=== PATIENT | male | born 1975 | race Two or more races ===

== ENCOUNTER 2025-06-30 11:32 | Emergency (ER) | payer BC, SELFPAY ==
[2025-06-30 11:39] VITALS: BP 145/83; PULSE 59; RESP 18; TEMP 36.6; O2SAT 99; BMI 21.7
--- NOTE | 2025-06-30 11:40 | EKG_ITS ---
[facility] Test Date: 2025-06-30 Pat Name: MUSHTAQ ALLEN Department: Room: - Gender: Male [employer] Carrier: : 1975 Requested By: Tim Damico (ERENDIRA) Order Number: [id number] Reading MD: Tim Damico (METAL TREATER) Measurements Intervals [place] Rate: 60 P: 64 MD: 134 QRS: 54 QRSD: 90 T: 64 QT: 416 QTc: 418 Interpretive Statements SINUS RHYTHM NONSPECIFIC T-WAVE ABNORMALITY No previous ECG available for comparison /store/S0/[id number]/ecg/[id number].pdf
--- NOTE | 2025-06-30 11:40 | PD.EDRME ---
Rapid Medical Screening Exam RME Arrival date/time: 06/30/25 11:32 49-year-old male presents emergency department with complaints of upper abdominal pain since this morning Chief Complaint: Abdominal Pain Vital signs: Vital Signs Temperature 97.8 F 06/30/25 11:39 Pulse Rate 59 L 06/30/25 11:39 Respiratory Rate 18 06/30/25 11:39 Blood Pressure 145/83 H 06/30/25 11:39 Pulse Oximetry (%) 99 06/30/25 11:39 Oxygen Delivery Method Room Air 06/30/25 11:39
[2025-06-30] MEDS: FAMOTIDINE 20 MG TABLET PO ×2 (11:53→14:12)
[2025-06-30] MEDS: ONDANSETRON ODT 4 MG TABRAP PO (11:53)
[2025-06-30 12:31] LABS: Collection Type, Urine Clean Catch; Squamous Epithelial Cell,Urine 0 /hpf (0-5)
[2025-06-30 12:37] LABS: Basophils # (Auto) 0.0 Thou/mm3 (0.0-0.2); Basophils % (Auto) 0 % (0-2.5); Eosinophils # (Auto) 0.1 Thou/mm3 (0.0-0.5); Eosinophils % (Auto) 1 % (0-10); Hematocrit 43.9 % (41.0-53.0); Hemoglobin 15.1 g/dL (13.5-16.0); Immature Granulocytes Auto 0.03 Thou/mm3 (0.00-0.00); Lymphocytes # (Auto) 2.6 Thou/mm3 (1.0-4.8); Lymphocytes % (Auto) 28 % (10-50); Mean Corpuscular HGB Conc 34.4 g/dl (31.0-37.0); Mean Corpuscular Hemoglobin 31.2 pg (25.0-35.0); Mean Corpuscular Volume 91 fL (80-100); Monocytes # (Auto) 0.6 Thou/mm3 (0.0-0.8); Monocytes % (Auto) 6 % (0-12); Neutrophils # (Auto) 6.1 Thou/mm3 (1.8-7.7); Neutrophils % (Auto) 64 % (37-80); Nucleated Red Blood Cell # 0.00 Thou/mm3 (0.00-0.00); Nucleated Red Blood Cell % 0 /100 WBC (0); Platelet Count 174 Thou/mm3 (140-440); RDW Standard Deviation 41.8 fL (35.1-43.9); Red Blood Count 4.84 Miln/mm3 (4.50-5.90); White Blood Count 9.4 Thou/mm3 (3.8-10.6)
[2025-06-30 12:39] VITALS: BP 164/93; PULSE 56; RESP 16; TEMP 36.5; O2SAT 99
[2025-06-30 12:54] LABS: Alanine Aminotransferase 18 U/L (10-49); Albumin, Serum 4.4 gm/dL (3.5-5.0); Albumin/Globulin Ratio 1.5 (1.2-2.2); Alkaline Phosphatase 77 U/L (46-116); Anion Gap 9 (7-16); Aspartate Amino Transferase 24 U/L (0-34); BUN/Creatinine Ratio 21 Ratio (12-20); Bilirubin,Total 0.7 mg/dL (0.3-1.2); Blood Urea Nitrogen 21 mg/dL (9-23); Calcium 9.5 mg/dL (8.3-10.6); Calcium (Corrected) 9.5 mg/dL (8.5-10.1); Carbon Dioxide 25.8 mMol/L (20.0-31.0); Chloride 105 mMol/L (98-107); Creatinine (Component) 1.0 mg/dL (0.6-1.3); Estimated Creatinine Clearance 75.7 mL/min (>60); Globulin 2.9 gm/dL (2.3-3.5); Glucose 110 mg/dL (74-106); Lipase 41 U/L (12-53); Osmolality,Calculated 283 (275-295); Potassium 4.4 mMol/L (3.4-5.1); Sodium 140 mMol/L (136-145); Total Protein 7.3 gm/dL (5.7-8.2); Troponin I < 0.002 ng/mL (0.0-0.045); eGFR > 60 See Note
[2025-06-30 12:54] LABS: Bilirubin,Urine Negative (Negative); Blood,Urine Negative (Negative); Clarity,Urine Clear (Clear/Hazy); Color,Urine Lt-Yellow (Lt Yel-Yel); Culture Indicated,Urine Not Indicated; Glucose, Urine Negative (Negative); Ketones,Urine Trace (Negative); Leukocyte Esterase,Urine Negative (Negative); Nitrite,Urine Negative (Negative); PH,Urine 6.5 (5.0-7.0); Protein,Urine Negative (Neg - Trace); RBC,Urine 1 /hpf (0-3); Specific Gravity,Urine 1.023 (1.001-1.035); Urobilinogen,Urine Negative mg/dL (0.0-1.0); WBC,Urine < 1 /hpf (0-5)
--- NOTE | 2025-06-30 13:26 | EDNOTE_ITS ---
ED Abdominal Pain RME/HPI General Chief Complaint: Abdominal Pain Stated complaint: ABD PAIN SINCE 08 THIS MORNING Time seen by provider: 06/30/25 12:10 Arrival date/time: 06/30/25 11:32 RME / HPI RME / HPI narrative: 06/30/25 11:32 49-year-old male presents emergency department with complaints of upper abdominal pain since this morning DR. MORRIS MAIN ED EVALUATION 49 year old male with no stated medical history presents to the ED with complaint of epigastric abdominal pain beginning at 08:30 AM today. Described as burning in sensation that has remained constant since onset, rating as moderate. Accompanied by nausea. Reports he had experienced similar pain in the past that resolved with Tylenol. However, took Tylenol today with no improvement. States at work he ate tamales and had a sandwich and a bowl of cereal after getting off work today at 02:00 AM. Denies any known aggravating factors. States he has not had anything to eat or drink since onset. Denies fevers, chills, chest pain, cough, sore throat, vomiting, diarrhea, or urinary symptoms. Patient admits to drinking alcohol and last consumed 2 weeks ago. Denies use of drugs or smoking tobacco. Related Data Previous Rx's ?Medication ?Instructions ?Recorded albuterol sulfate 90 mcg/actuation 1 inh inhalation QI D PRN shortness 06/15/20 aerosol inhaler of breath or wheezing #8.5 g jose imlnepupf-TP-vkkplfbroaxqg 25 30 ml PO Q6HR #245.5 mL 06/15/20 mg-10 mg-650 mg/30 mL oral liquid (Theraflu ExpressMax Cold-Cough Night) azithromycin 500 mg tablet See Rx Instructions PO .COM PLEX #3 06/16/20 tabs ibuprofen 600 mg tablet 600 mg PO Q8H PRN pain #20 t abs 09/20/23 aluminum-mag hydroxide-simethicone 10 ml PO TID PRN in digestion #250 06/30/25 400 mg-400 mg-40 mg/5 mL oral susp mL (Mylanta Maximum Strength) famotidine 40 mg tablet 40 mg PO BID #14 tabs ondansetron 4 mg disintegrating 4 mg PO Q8H PRN nausea and 06/30/25 tablet vomiting #6 tabs Allergies Allergy/AdvReac Type Severity Reaction Status Date / Time No Known Allergies Allergy Verified 06/30/25 11:34 Review of Systems Review of Systems Systems Reviewed: All systems reviewed, normal except as documented Past Medical History Family History FAMILY HISTORY: Positive Family Cardiac Disorders Social History SMOKING STATUS: Never smoker SUBSTANCE USE: does not use ED Exam Narrative Physical exam: GENERAL APPEARANCE: alert and oriented x 4, well-developed, well-nourished, appears uncomfortable, grimacing in pain HEENT: Normocephalic, atraumatic; pupils equal, round, reactive to light; EOMI; mucous membranes pink, moist; oropharynx clear NECK: Supple LUNGS: CTABL; no wheezes, no rales, no rhonchi HEART: Regular rate, regular rhythm; normal S1, S2; no murmurs ABDOMEN: non distended; normal BS; soft, epigastric and periumbilical tenderness to palpation, no guarding, no rebound; no masses, no organomegaly, no hernia BACK: no CVA tenderness EXTREMITIES: atraumatic; no edema NEUROLOGIC: awake; alert and oriented x4; cranial nerves II-XII grossly intact; no focal sensory or motor deficits PSYCHIATRIC: appropriate mood and affect SKIN: warm, dry, normal color; no rashes Course Course Course Narrative: 1520: Patient reports feeling much improved from onset though still has some pain. Labs were reviewed including CBC, CMP, lipase which were generally unremarkable. Magnesium mildly low. Given location of pain to epigastrium described as burning along with exam findings and unremarkable labs overall, likely gastritis/GI origin. I advised the patient eat a bland diet for the next few days and will send home with recommendations for as needed medications for home. Quality Measures none Orders Category Date Time Status EKG (ED ONLY) *Do not use* NOW Care 06/30/25 11:40 Completed EKG (ED Only) Stat Exams 06/30/25 11:40 Draft CBC Stat Lab 06/30/25 11:57 Completed Comprehensive Metabolic Panel Stat Lab 06/30/25 11:57 Completed Lipase Stat Lab 06/30/25 11:57 Completed Magnesium Stat Lab 06/30/25 14:20 Completed Troponin I Stat Lab 06/30/25 11:57 Completed UA, C/S IF [Urinalysis, C/S if Indicated] Stat Lab 06/30/25 12:02 Completed Famotidine [Pepcid] Med 06/30/25 11:41 Discontinued 20 mg PO X1 ONE Famotidine [Pepcid] Med 06/30/25 13:28 Discontinued 20 mg PO X1 ONE Ketorolac Inj [Toradol Inj] Med 06/30/25 15:25 Discontinued 30 mg IVP X1 ONE Magnesium Sulfate 1 gm Ivpb [Magnesium Sulfate Ivpb] Med 06/30/25 15:25 Discontinued 1 gm in 100 ml IV X1 Ondansetron Odt [Zofran Odt] Med 06/30/25 11:41 Discontinued 4 mg PO X1 ONE Pantoprazole [Protonix] Med 06/30/25 13:27 Discontinued 40 mg PO X1 ONE Sodium Chloride 0.9% 500 ml [Ns] 500 ml Med 06/30/25 13:29 Discontinued IV 1,000 mls/hr mg Hyd/Al Hyd/Ingris Susp [Maalox Susp] Med 06/30/25 13:27 Discontinued 30 ml PO X1 ONE Vital Signs Vital signs: Vital Signs Temperature 97.8 F 06/30/25 11:39 Pulse Rate 59 L 06/30/25 11:39 Respiratory Rate 18 06/30/25 11:39 Blood Pressure 145/83 H 06/30/25 11:39 Pulse Oximetry (%) 99 06/30/25 11:39 Oxygen Delivery Method Room Air 06/30/25 11:39 Pulse ox is 99% on room air which is adequate. Abdominal Pain MDM MDM Narrative MDM Narrative:: Amirah Santana am scribing for and in the presence of Dr. Morris. Patient data External records reviewed:: [facility] previous records (I reviewed ED visit on 09/08/2024 ) Clinical information provided by:: patient Social determinants that could affect healthcare access:: none Patient has the following chronic illnesses:: None reported How is presenting disease/condition affected by chronic disease/condition?: no chronic disease Evaluation data The following diagnostics were reviewed and interpreted by me:: lab results and EKG tracing(s) (06/30/2025 @ 11:43 AM. Sinus rhythm, rate 60, no STEMI. ) Lab and/or radiology exams considered but not ordered:: None Interpretation Summary: Labs are all within normal limits Medications / Prescriptions Medications or Prescriptions considered but not ordered:: None Medication administrations:: Medication Administration History Discontinued Medications Al Hydrox/Mg Hydrox/Simethicone (Mg Hyd/Al Hyd/Ingris (Maalox Reg) Susp 30 Ml Udc) 30 ml PO X1 ONE Stop: 06/30/25 13:28 Last Admin: 06/30/25 14:12 Dose: 30 ml Documented By: WESLEY Famotidine (Famotidine 20 Mg Tablet) 20 mg PO X1 ONE Stop: 06/30/25 11:42 Last Admin: 06/30/25 11:53 Dose: 20 mg Documented By: Famotidine (Famotidine 20 Mg Tablet) 20 mg PO X1 ONE Stop: 06/30/25 13:29 Last Admin: 06/30/25 14:12 Dose: 20 mg Documented By: WESLEY Sodium Chloride (Ns) 500 mls @ 1,000 mls/hr IV .Q30M ONE Stop: 06/30/25 13:58 Last Infusion: 06/30/25 15:00 Dose: Infused Documented By: Admin: 06/30/25 14:12 Dose: 1,000 mls/hr Documented By: WESLEY Magnesium Sulfate/Dextrose (Magnesium Sulfate Ivpb) 1 gm in 100 mls @ 100 mls/hr IV X1 ONE Stop: 06/30/25 16:24 Last Admin: 06/30/25 16:00 Dose: 100 mls/hr Documented By: WESLEY Ketorolac Tromethamine (Ketorolac Inj 30 Mg/Ml Vial) 30 mg IVP X1 ONE Stop: 06/30/25 15:26 Last Admin: 06/30/25 16:00 Dose: 30 mg Documented By: WESLEY Ondansetron HCl (Ondansetron Odt 4 Mg Tabrap) 4 mg PO X1 ONE; Protocol Stop: 06/30/25 11:42 Last Admin: 06/30/25 11:53 Dose: 4 mg Documented By: Pantoprazole Sodium (Pantoprazole 40 Mg Tablet) 40 mg PO X1 ONE Stop: 06/30/25 13:28 Last Admin: 06/30/25 14:12 Dose: 40 mg Documented By: WESLEY See above Consultations Consultation(s) initiated? (list below): No Diagnosis Differential diagnosis abdominal pain: abdominal pain, gastroenteritis, pancreatitis and other (gastritis ) Most likely diagnosis given after review of the tests above:: Gastritis Admission Indicated Admission indicated?: not indicated Admission Request Was there a request for admission?: No Disposition Plan Disposition Plan: Discharge Discharge Attestation Discharge Attestation: The patient and all family members were given an opportunity to ask questions and understood the discharge instructions. Discharge instructions specifically effects, indications for sooner follow up or return to the emergency department, and the expected course of current diagnosis. Patient condition: Stable Discharge Plan Plan Patient Disposition: HOME (Self Care) Patient condition on transfer: Stable Prescriptions/Referrals Prescriptions/Med Rec: New famotidine 40 mg tablet 40 mg PO BID Qty: 14 0RF ondansetron 4 mg tablet,disintegrating 4 mg PO Q8H PRN (Reason: nausea and vomiting) Qty: 6 0RF alum-mag hydroxide-simeth [Mylanta Maximum Strength] 400-400-40 mg/5 mL suspension 10 ml PO TID PRN (Reason: indigestion) Qty: 250 0RF No Action albuterol sulfate 90 mcg/actuation HFA aerosol inhaler 1 inh IH QID PRN (Reason: shortness of breath or wheezing) Qty: 8.5 0RF Theraflu ExpressMax Cold Night 25-10-650 mg/30 mL liquid 30 ml PO Q6HR Qty: 245.5 0RF azithromycin 500 mg tablet See Rx Instructions .ROUTE .COMPLEX Qty: 3 0RF Rx Instructions: take 500 mg today (day 1), then 250 mg for 4 days (days 2-5) ibuprofen 600 mg tablet 600 mg PO Q8H PRN (Reason: pain) Qty: 20 0RF Referrals: Delroy Perez MD [Primary Care Provider] - In 1 week Problem List Clinical Impression: Gastritis Patient/Caregiver Discharge Instructions Diet Instructions: [place] diet for the next several days -avoid any alcohol, coffee, spicy foods, and any greasy foods, acidic foods such as tomato/tomato soup, pizza, citrus foods. May try mashed potatoes, oatmeal, toast, applesauce. Education Materials: Treating Gastritis, ED Gastritis (Adult) Print Language: Cameroonian Stand Alone Forms: [facility]oretta Award Info., Patient Portal Info Letter
[2025-06-30] MEDS: SODIUM CHLORIDE 0.9% 500 ML 500 ML 1000 ML IV (14:12)
[2025-06-30] MEDS: PANTOPRAZOLE 40 MG TABLET PO (14:12)
[2025-06-30] MEDS: MG HYD/AL HYD/SIME (Maalox Reg) SUSP 30 ML UDC PO (14:12)
[2025-06-30 15:01] VITALS: BP 147/84; PULSE 85; RESP 18; O2SAT 96
[2025-06-30 15:01] LABS: Magnesium 1.2 mg/dL (1.6-2.6)
[2025-06-30] MEDS: KETOROLAC INJ 30 MG/ML VIAL IVP (16:00)
[2025-06-30 16:09] VITALS: BP 152/88; PULSE 82; RESP 17; TEMP 36.6; O2SAT 96
[2025-06-30 17:14] VITALS: BP 120/69; PULSE 74; RESP 17; TEMP 36.9; O2SAT 98
== END 2025-06-30 17:15 | disposition home or self-care (01) ==
PROVIDERS: Nurse Practitioner Primary Care; Emergency Provider Family Medicine; PCP Family Medicine
DX: K29.70 Gastritis, unspecified, without bleeding (principal)
CPT/HCPCS: 36415; 80053; 81001; 83690; 83735; 84484; 85025; 93005; 96361; 96365; 96375; 99283; J1885; J3475; J7999; Q0162; A9270